=== PATIENT | male | born 1975 | race Caucasian/White ===

== ENCOUNTER 2025-07-31 07:22 | Emergency (ER) | payer OTHER ==
[~2025-07-31] VITALS: Ht 177.8 cm; Wt 89.7 kg
[2025-07-31] MEDS: PROTAMINE SULF 50MG 5ML VIAL IV ONE (07:40)
[2025-07-31] MEDS: OCTREOTIDE ACETATE 100 MCG/ML VIAL **IV ADMINISTRATION ONLY IV ONE (07:41)
[2025-07-31 07:43] LABS: VENOUS BASE EXCESS -6.2 (-2.0-2.0); VENOUS HCO3 19.2 MMOL/L (23.0-27.0); VENOUS O2 SATURATION 61.0 % (60.0-80.0); VENOUS PARTIAL PRESSURE CO2 37.6 mmHg (38.0-50.0); VENOUS PARTIAL PRESSURE O2 36.9 mmHg (30.0-50.0); VENOUS PH 7.327 UNITS (7.330-7.430); VENOUS STANDARD HCO3 18.9 MMOL/L; VENOUS TOTAL CO2 20.4 MMOL/L (24.0-28.0)
[2025-07-31 07:44] LABS: BASO # 0.1 10^3/uL (0.0-0.2); BASO % 1.6 % (0.0-1.0); EOS # 0.3 10^3/uL (0.0-0.5); EOS % 3.0 % (0.0-3.0); LYMPH # 2.1 10^3/uL (1.5-5.0); LYMPH % 24.6 % (24.0-44.0); MONO # 0.9 10^3/uL (0.0-0.8); MONO % 10.3 % (2.0-8.0); NEUTROPHILS # 5.0 10^3/uL (1.5-8.5); NEUTROPHILS % 58.5 % (36.0-66.0); PLATELET COUNT, AUTOMATED 195 10^3/uL (150-450)
[2025-07-31] MEDS: ONDANSETRON 4MG/2ML VIAL IV ONE ×2 (07:45→08:15)
[2025-07-31] MEDS ORDERED: ISOVUE-370 76% 100 ML VIAL As Ordered ONE (07:50)
[2025-07-31] MEDS: OCTREOTIDE ACETATE 1,200 MCG in NS 238.8 ML IV SCH (08:15)
[2025-07-31 08:17] VITALS: BP 108/59; TEMP 96.5; O2SAT 100
[2025-07-31 08:20] LABS: CK-MB VALUE MASS < 1.0 NG/ML (<3.6); ETHYL ALCOHOL (ETHANOL) < 0.003 % (0.000-0.010)
[2025-07-31 08:21] LABS: CPK CREATINE PHOSPHOKINASE 34 U/L (46-171)
[2025-07-31 08:22] LABS: ALT/SGPT < 9 U/L (7.0-40); AST/SGOT 31 U/L (<34); CALCIUM LEVEL 7.9 MG/DL (8.5-10.1); CARBON DIOXIDE LEVEL 20 MMOL/L (20-31); CHLORIDE LEVEL 107 MMOL/L (98-107); CREATININE FOR GFR 1.67 MG/DL (0.70-1.30); GLOMERULAR FILTRATION RATE 49.9 (>60); POTASSIUM SERUM 4.8 MMOL/L (3.5-5.1); SODIUM LEVEL 139 MMOL/L (136-145)
[2025-07-31 08:27] VITALS: BP 119/64; TEMP 96.7; O2SAT 100
[2025-07-31 08:29] LABS: INR 1.96
[2025-07-31] MEDS: PANTOPRAZOLE 40MG VIAL IV ONE (08:45)
[2025-07-31] MEDS ORDERED: CALCIUM GLUCONATE 1,000 MG in DEXTROSE 5% (D5W) MINI-BAG PLU 100 ML IV ONE (08:50)
[2025-07-31] MEDS: PANTOPRAZOLE SODIUM 40 MG in DEXTROSE 5% (D5W) ADV/MINI-BAG 50 ML IV SCH (08:53)
[2025-07-31 09:13] VITALS: BP 141/60; TEMP 97.4; O2SAT 100
[2025-07-31 09:17] LABS: C REACTIVE PROTEIN QUANTITATIV 2.11 MG/DL (<1.0)
[2025-07-31] MEDS: CALCIUM GLUCONATE 1,000 MG in DEXTROSE 5% (D5W) MINI-BAG PLU 100 ML IV ONE (09:24)
[2025-07-31] MEDS: cefTRIAXone SOD 1 GM in DEXTROSE 5% (D5W) ADV/MINI-BAG 50 ML IV ONE (09:35)
[2025-07-31 09:44] LABS: CK-MB VALUE MASS < 1.0 NG/ML (<3.6)
[2025-07-31 09:45] VITALS: BP 133/65; TEMP 97; O2SAT 99
[2025-07-31 09:46] LABS: CPK CREATINE PHOSPHOKINASE 40 U/L (46-171)
[2025-07-31 09:51] VITALS: TEMP 97
[2025-07-31 09:53] VITALS: BP 133/65; O2SAT 100
[2025-07-31] MEDS: MORPHINE 2 MG/ML 1 ML VIAL IV PRN (09:53)
== END 2025-07-31 09:57 | disposition short-term general hospital (02) ==
LOC: M ED 07:22 → EDBD 07:22 → M ED 09:57
DX: K92.2 Gastrointestinal hemorrhage, unspecified (principal); I95.9 Hypotension, unspecified; D64.9 Anemia, unspecified; R55 Syncope and collapse; M54.9 Dorsalgia, unspecified; S82.432A Displaced oblique fracture of shaft of left fibula, initial encounter for closed fracture; X58.XXXA Exposure to other specified factors, initial encounter; Y92.9 Unspecified place or not applicable; Y93.9 Activity, unspecified; Y99.9 Unspecified external cause status; K74.60 Unspecified cirrhosis of liver; M51.34 Other intervertebral disc degeneration, thoracic region; E11.9 Type 2 diabetes mellitus without complications; F17.200 Nicotine dependence, unspecified, uncomplicated
CPT/HCPCS: 36430; 70450; 71045; 72125; 72128; 72131; 73610; 74174; 80047; 80053; 82077; 82248; 82550; 82553; 82803; 83605; 83690; 84145; 84484; 85025; 85384; 85610; 85652; 85730; 86140; 86850; 86900; 86901; 86920; 87040; 87486; 87581; 87633; 87798; 93005; 96365; 96366; 96367; 96368; 96375; 99291; 99292; J0612; J0696; J2354; J2405; J2470; J2720; P9016; P9059; Q9967